=== PATIENT | male | born 1960 | race African-American/Black ===

== ENCOUNTER 2021-03-07 18:29 | Emergency (ER) | payer BC ==
[2021-03-07] MEDS ORDERED: Sodium Chloride 0.9% 1,000 ML IV ONE (18:40)
[2021-03-07] MEDS ORDERED: Ondansetron 4 MG/2 ML SDV IVPUSH ONE (18:40)
[2021-03-07] MEDS: Sodium Chloride 0.9% 10 ML Syringe FLUSH PRN ×2 (18:57→22:25)
[2021-03-07 19:18] LABS: BASE EXCESS VENOUS,POC -2 mmol/L (-2 - 3+); PCO2 VENOUS,POC 33 mmHg (41-51); PH VENOUS,POC 7.43 pH Units (7.32-7.43)
[2021-03-07] MEDS ORDERED: Cephalexin 500 MG Cap PO ONE (19:52)
[2021-03-07] MEDS ORDERED: Acetaminophen 500 MG Tab PO ONE (19:55)
[2021-03-07] MEDS ORDERED: Sodium Chloride 0.9% 1,000 ML IV SCH (21:15)
[2021-03-07] MEDS ORDERED: cefTRIAXone 1 GM Vial IVPUSH STA (22:16)
== END 2021-03-07 23:05 | disposition home or self-care (01) ==
LOC: FB.ED 18:29
DX: U07.1 COVID-19 (principal); N40.1 Benign prostatic hyperplasia with lower urinary tract symptoms; N30.90 Cystitis, unspecified without hematuria; I10 Essential (primary) hypertension; Z79.01 Long term (current) use of anticoagulants; Z79.899 Other long term (current) drug therapy
CPT/HCPCS: 36415; 80053; 81001; 83605; 83735; 85025; 85610; 86140; 87086; 87088; 87186; 96374; 96375; 99284; 99284-25; A9270-GY; J0696; J2405; J7030; U0002

== ENCOUNTER 2022-01-15 13:53 | Emergency (ER) | payer BC, OTHER ==
[2022-01-15] MEDS ORDERED: Lactated Ringers 1,000 ML IV ONE (13:54)
[2022-01-15] MEDS ORDERED: Sodium Chloride 0.9% 1,000 ML IV SCH (13:55)
[2022-01-15] MEDS ORDERED: proTAMINE 250 MG/25 ML SDV IVPUSH ONE (13:56)
[2022-01-15] MEDS ORDERED: Lidocaine 2% Viscous Solution 15 ML UD PO ONE (14:07)
[2022-01-15] MEDS ORDERED: Lidocaine 2% Viscous Solution 15 ML UD ONE (14:08)
[2022-01-15] MEDS ORDERED: Metoclopramide 10 MG/2 ML SDV IVPUSH ONE (14:08)
[2022-01-15 14:17] LABS: ESTIMATED GFR 63 mL/min (>60)
== END 2022-01-15 15:11 ==
LOC: FB.ED 13:53
DX: K92.2 Gastrointestinal hemorrhage, unspecified (principal); I10 Essential (primary) hypertension; Z79.899 Other long term (current) drug therapy
CPT/HCPCS: 51702; 71045; 74018; 80048; 82947; 85027; 85610; 96365; 96375; 99285; A9270; J2765; J3430; J3490; J7030; J7120

== ENCOUNTER 2022-06-12 14:38 | Emergency (ER) | payer BC, OTHER ==
[2022-06-12] MEDS ORDERED: Sodium Chloride 0.9% 10 ML Syringe FLUSH PRN (14:52)
[2022-06-12 15:27] LABS: ESTIMATED GFR 45 mL/min (>60)
== END 2022-06-12 17:00 | disposition home or self-care (01) ==
LOC: FB.ED 14:38
DX: R55 Syncope and collapse (principal); I10 Essential (primary) hypertension; Z79.899 Other long term (current) drug therapy
CPT/HCPCS: 36415; 71045; 80053; 83605; 84484; 85025; 85610; 86140; 93005; 93010; 99283; 99285